=== PATIENT | female | born 1950 | race Caucasian/White ===

== ENCOUNTER 2016-11-20 13:19 | Emergency (ER) | payer MEDICARE ==
[~2016-11-20 13:19] MED LIST: ALPR0.25; ASPI-605; BUPR100T4 PO; OXCA300O
--- NOTE | 2016-11-20 13:33 | NUR ---
called patient name, not found in waiting room or overflow
--- NOTE | 2016-11-20 14:29 | NUR ---
called patient again not in waiting room
== END 2016-11-20 14:30 | disposition left against medical advice (07) ==
LOC: ER 13:20
DX: Z53.21 Procedure and treatment not carried out due to patient leaving prior to being seen by health care provider (principal)

== ENCOUNTER 2018-05-25 12:52 | Emergency (ER) | payer MEDICARE, BC ==
[~2018-05-25] VITALS: Ht 147.3 cm; Wt 42.2 kg
--- NOTE | 2018-05-25 13:29 | NUR ---
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 PT STATES TAKING ABX FOR UTI. ALSO TOOK SOMA FOR PAIN AND THINKS SHE IS HAVING AN ALLERGIVC REACTION. DENIES SOB. VSS. AWAITING MD MURPHY.
--- NOTE | 2018-05-25 13:44 | NUR ---
DR NEFF AT BEDSIDE FOR EVAL.
--- NOTE | 2018-05-25 14:04 | NUR ---
IV LINE STARTED. BLOOD DRAWN AND SENT TO LAB.
[2018-05-25 14:20] LABS: CALCIUM, SERUM 8.8 mg/dL (8.5-10.1); CARBON DIOXIDE 31 mmol/L (21-32); CHLORIDE 99 mmol/L (98-107); CREATININE 0.9 mg/dL (0.6-1.3); GLUCOSE 108 mg/dL (74-106); POTASSIUM 4.1 mmol/L (3.5-5.1); SODIUM SERUM 133 mmol/L (136-145); UREA NITROGEN, BLOOD 13 mg/dL (7-18)
[2018-05-25 14:23] LABS: INR 0.95 (0.85-1.15)
[2018-05-25 14:28] LABS: TROPONIN I < 0.017 ng/mL (0.00-0.056)
[2018-05-25 14:52] LABS: BASOPHILS % (AUTO) 0.3 % (0.0-2.0); EOSINOPHILS % (AUTO) 0.1 % (0.0-6.0); HEMATOCRIT 37 % (33-45); HEMOGLOBIN 12.5 g/dL (11.5-14.8); LYMPHOCYTES # (AUTO) 1.1 /CMM (0.8-4.8); LYMPHOCYTES % (AUTO) 9.4 % (20.0-44.0); MEAN CORPUSCULAR HGB CONC 34 g/dl (31.0-36.0); MEAN CORPUSCULAR VOLUME 97 fL (82-100); MONOCYTES # (AUTO) 1.2 /CMM (0.1-1.30); MONOCYTES % (AUTO) 10.7 % (2.0-12.0); NEUTROPHILS # (AUTO) 9.1 /CMM (1.8-8.9); NEUTROPHILS % (AUTO) 79.5 % (43.0-81.0); PLATELET COUNT (AUTO) 344 /CMM (150-450); RED BLOOD CELL COUNT(AUTO) 3.82 MIL/uL (4.0-5.2); WHITE BLOOD COUNT (AUTO) 11.5 K/uL (4.3-11.0)
--- NOTE | 2018-05-25 15:38 | NUR ---
Patient discharged to home in stable condition. Written and verbal after care instructions given. Patient verbalizes understanding of instruction.IV removed. Catheter intact and site benign. Pressure and 4x4 applied to site. No bleeding noted.
[2018-05-25 15:39] VITALS: BP 115/62
== END 2018-05-25 15:39 | disposition home or self-care (01) ==
LOC: ER 12:54
DX: R07.89 Other chest pain (principal); I10 Essential (primary) hypertension; F31.9 Bipolar disorder, unspecified; E22.2 Syndrome of inappropriate secretion of antidiuretic hormone; Z98.890 Other specified postprocedural states; Z90.89 Acquired absence of other organs; Z60.2 Problems related to living alone; Z87.440 Personal history of urinary (tract) infections
CPT/HCPCS: 36415; 71045; 80048; 84484; 85025; 85730; 93005; 99285; A4606; Z7610

== ENCOUNTER 2018-12-14 11:32 | Emergency (ER) | payer MEDICARE, BC ==
[~2018-12-14] VITALS: Ht 147.3 cm; Wt 43.1 kg
[2018-12-14 11:55] VITALS: BP 135/61
--- NOTE | 2018-12-14 12:35 | NUR ---
DR APODACA AT BEDSIDE
[2018-12-14] MEDS ORDERED: KETOROLAC TROMETHAMINE INJ 30 MG/ML VIAL ONE (12:39)
--- NOTE | 2018-12-14 12:39 | NUR ---
RECEIVED VERBAL ORDER FROM DR APODACA FOR TORADOL 30MG IM. CARRIED OUT ORDER.
[2018-12-14] MEDS ORDERED: KETOROLAC TROMETHAMINE INJ 60 MG/2 ML VIAL IM ONE (13:00)
== END 2018-12-14 13:50 | disposition home or self-care (01) ==
LOC: ER 11:35
DX: K08.89 Other specified disorders of teeth and supporting structures (principal); F31.9 Bipolar disorder, unspecified; E22.2 Syndrome of inappropriate secretion of antidiuretic hormone; Z98.890 Other specified postprocedural states; Z90.89 Acquired absence of other organs; Z60.2 Problems related to living alone; Z79.82 Long term (current) use of aspirin
CPT/HCPCS: 96372; 99283; J1885

== ENCOUNTER 2023-09-07 19:38 | Inpatient (IN) | payer MEDICARE, BC ==
[~2023-09-07] VITALS: Ht 147.3 cm; Wt 43.1 kg
[2023-09-07 20:37] LABS: BASOPHILS % (AUTO) 0.3 % (0.0-2.0); EOSINOPHILS # (AUTO) 0.1 K/uL (0.0-0.7); EOSINOPHILS % (AUTO) 1.9 % (0.0-6.0); HEMATOCRIT 36 % (33-45); HEMOGLOBIN 12.1 g/dL (11.5-14.8); LYMPHOCYTES # (AUTO) 1.5 K/uL (0.8-4.8); LYMPHOCYTES % (AUTO) 20.8 % (20.0-44.0); MEAN CORPUSCULAR HEMOGLOBIN 32 PG (26.0-33.0); MEAN CORPUSCULAR HGB CONC 34 g/dl (31.0-36.0); MEAN CORPUSCULAR VOLUME 95 fL (82-100); MONOCYTES # (AUTO) 0.8 K/uL (0.1-1.30); MONOCYTES % (AUTO) 10.9 % (2.0-12.0); NEUTROPHILS # (AUTO) 4.8 K/uL (1.8-8.9); NEUTROPHILS % (AUTO) 66.1 % (43.0-81.0); PLATELET COUNT (AUTO) 243 K/uL (150-450); RED BLOOD CELL COUNT(AUTO) 3.81 MIL/uL (4.0-5.2); RED CELL DISTRIBUTION WIDTH 13.1 % (11.5-15.0); WHITE BLOOD COUNT (AUTO) 7.3 K/uL (4.3-11.0)
[2023-09-07] MEDS ORDERED: KETOROLAC TROMETHAMINE 15 MG/ML VIAL ONE (20:50)
[2023-09-07 20:51] LABS: CALCIUM, SERUM 9.4 mg/dL (8.5-10.1); CARBON DIOXIDE 28 mmol/L (21-32); CHLORIDE 98 mmol/L (98-107); CREATININE 0.7 mg/dL (0.6-1.3); GLUCOSE 112 mg/dL (74-106); POTASSIUM 3.7 mmol/L (3.5-5.1); SODIUM SERUM 135 mmol/L (136-145); UREA NITROGEN, BLOOD 15 mg/dL (7-18)
[2023-09-07] MEDS ORDERED: ASPIRIN 325 MG TABLET ONE (20:51)
[2023-09-07] MEDS ORDERED: ASPIRIN 325 MG TABLET PO ONE (21:00)
[2023-09-07] MEDS ORDERED: KETOROLAC TROMETHAMINE 15 MG/ML VIAL IV ONE (21:00)
[2023-09-07 21:03] LABS: ALANINE AMINOTRANSFERASE 33 U/L (12-78); ALBUMIN 3.7 g/dL (3.4-5.0); ALKALINE PHOSPHATASE 89 U/L (46-116); ASPARTATE AMINOTRANSFERASE 22 U/L (15-37); BILIRUBIN,DIRECT 0.1 mg/dL (0.0-0.2); BILIRUBIN,TOTAL 0.4 mg/dL (0.2-1.0); NT-PRO BNP 369 pg/mL (0-125)
[2023-09-07] MEDS ORDERED: ACETAMINOPHEN 325 MG TABLET PO PRN (22:00)
[2023-09-07] MEDS ORDERED: hydrALAZINE HCL IV 20 MG VIAL IV PRN (22:00)
[2023-09-07] MEDS ORDERED: ALPRAZOLAM 0.25 MG TABLET PO PRN (22:00)
[2023-09-07] MEDS ORDERED: ONDANSETRON HCL/PF 4 MG/2 ML VIAL IVP PRN (22:00)
[2023-09-08 08:20] VITALS: O2SAT 100
[2023-09-08] MEDS ORDERED: ROSU5TAB PO (08:20)
[2023-09-08] MEDS ORDERED: DIAZ5TAB4 PO (08:20)
[2023-09-08] MEDS ORDERED: MULT-754 PO (08:20)
[2023-09-08] MEDS ORDERED: ASCO100T12 PO (08:20)
[2023-09-08] MEDS ORDERED: NAPR-1009 PO (08:20)
[2023-09-08] MEDS ORDERED: OXCA300T15 PO (08:20)
[2023-09-08] MEDS ORDERED: BUPR200T3 PO (08:20)
[2023-09-08] MEDS ORDERED: OXCA600T5 PO (08:20)
[2023-09-08] MEDS ORDERED: ASPI-1420 PO (08:20)
[2023-09-08] MEDS ORDERED: METO-357 PO (08:20)
[2023-09-08] MEDS ORDERED: LACT1CAP97 PO (08:20)
[2023-09-08] MEDS ORDERED: FOLI0.8T3 PO (08:20)
[2023-09-08] MEDS ORDERED: AMLO10TA4 PO (08:20)
[2023-09-08] MEDS ORDERED: ASPIRIN EC 81 MG TABLET.DR PO ONE (08:35)
[2023-09-08] MEDS ORDERED: MORPHINE SULFATE INJ 2 MG/ML DISP.SYRIN ONE (08:48)
[2023-09-08] MEDS: HEPARIN SODIUM, PORCINE 5000 UNITS/1 ML VIAL SQ SCH ×2 (08:52→22:22)
[2023-09-08] MEDS: MORPHINE SULFATE INJ 2 MG/ML DISP.SYRIN IV PRN ×3 (08:53→18:09)
[2023-09-08] MEDS ORDERED: ASPIRIN EC 81 MG TABLET.DR PO SCH (09:00)
[2023-09-08] MEDS ORDERED: buPROPion 100 MG TABLET PO SCH ×2 (09:00→11:00)
[2023-09-08] MEDS ORDERED: IV NS 0.9% 250 ML IV ONE (09:11)
[2023-09-08] MEDS ORDERED: IOHEXOL-350 100 ML VIAL IV ONE (09:11)
[2023-09-08 09:43] LABS: BASOPHILS % (AUTO) 0.5 % (0.0-2.0); EOSINOPHILS # (AUTO) 0.1 K/uL (0.0-0.7); EOSINOPHILS % (AUTO) 3.2 % (0.0-6.0); HEMATOCRIT 35 % (33-45); HEMOGLOBIN 11.9 g/dL (11.5-14.8); LYMPHOCYTES # (AUTO) 1.1 K/uL (0.8-4.8); MEAN CORPUSCULAR HEMOGLOBIN 32 PG (26.0-33.0); MEAN CORPUSCULAR HGB CONC 34 g/dl (31.0-36.0); MEAN CORPUSCULAR VOLUME 94 fL (82-100); MONOCYTES # (AUTO) 0.5 K/uL (0.1-1.30); MONOCYTES % (AUTO) 11.8 % (2.0-12.0); NEUTROPHILS # (AUTO) 2.5 K/uL (1.8-8.9); NEUTROPHILS % (AUTO) 58.5 % (43.0-81.0); PLATELET COUNT (AUTO) 236 K/uL (150-450); RED BLOOD CELL COUNT(AUTO) 3.68 MIL/uL (4.0-5.2); RED CELL DISTRIBUTION WIDTH 12.4 % (11.5-15.0); WHITE BLOOD COUNT (AUTO) 4.3 K/uL (4.3-11.0)
[2023-09-08 10:19] LABS: ALBUMIN 3.1 g/dL (3.4-5.0); BILIRUBIN,TOTAL 0.6 mg/dL (0.2-1.0); CALCIUM, SERUM 9.1 mg/dL (8.5-10.1); CREATININE 0.6 mg/dL (0.6-1.3); MAGNESIUM 1.9 mg/dL (1.8-2.4); PHOSPHORUS 3.8 mg/dL (2.5-4.9); POTASSIUM 3.8 mmol/L (3.5-5.1); TOTAL PROTEIN, SERUM 7.3 g/dL (6.4-8.2)
[2023-09-08] MEDS ORDERED: OXCARBAZEPINE 150 MG TABLET PO SCH ×3 (11:00→22:00)
[2023-09-08] MEDS: OXCARBAZEPINE 150 MG TABLET PO SCH ×3 (11:21→21:21)
[2023-09-08] MEDS: DIAZEPAM 5 MG TABLET PO SCH ×2 (11:22→17:27)
[2023-09-08] MEDS: buPROPion SR 100 MG TABLET.ER PO SCH ×2 (11:22→17:26)
[2023-09-08 16:29] VITALS: BP 106/67; TEMP 98.1; O2SAT 98
[2023-09-08] MEDS ORDERED: OXCARBAZEPINE 300 MG PO SCH (17:00)
[2023-09-08] MEDS: NAPROXEN 500 MG TABLET PO SCH (17:56)
[2023-09-08 20:00] VITALS: BP 109/64; TEMP 98.1; O2SAT 97
[2023-09-08] MEDS: ATORVASTATIN 10 MG TABLET PO SCH (21:20)
[2023-09-08] MEDS: METOPROLOL SUCCINATE 50 MG TAB.SR.24H PO SCH (21:35)
[2023-09-08] MEDS ORDERED: OXCARBAZEPINE 600 MG PO SCH (22:00)
[2023-09-09] VITALS: BP 117/70; TEMP 98; O2SAT 96
[2023-09-09] MEDS: DIAZEPAM 5 MG TABLET PO SCH ×6 (00:22→18:09)
[2023-09-09] MEDS: MORPHINE SULFATE INJ 2 MG/ML DISP.SYRIN IV PRN ×4 (00:31→22:50)
[2023-09-09 05:00] VITALS: BP 135/79; TEMP 97.9; O2SAT 97
[2023-09-09 08:26] VITALS: BP 130/78; TEMP 97.5; O2SAT 97
[2023-09-09] MEDS: FOLIC ACID 1 MG TABLET PO SCH (08:52)
[2023-09-09] MEDS: ASPIRIN EC 81 MG TABLET.DR PO SCH (08:52)
[2023-09-09] MEDS: OXCARBAZEPINE 150 MG TABLET PO SCH ×3 (08:52→21:57)
[2023-09-09] MEDS: buPROPion SR 100 MG TABLET.ER PO SCH ×2 (08:53→16:15)
[2023-09-09] MEDS: NAPROXEN 500 MG TABLET PO SCH ×2 (08:53→18:09)
[2023-09-09] MEDS: LACTOBACILLUS RHAMNOSUS GG 1 EACH CAP.SPRINK PO SCH (08:53)
[2023-09-09] MEDS: ASCORBIC ACID 500 MG TABLET PO SCH (08:53)
[2023-09-09] MEDS: AMLODIPINE BESYLATE 10 MG TABLET PO SCH (08:54)
[2023-09-09] MEDS: MULTIVITAMINS,THERAGRAN 1 UDTAB TABLET PO SCH (08:56)
[2023-09-09] MEDS: HEPARIN SODIUM, PORCINE 5000 UNITS/1 ML VIAL SQ SCH ×2 (08:56→21:56)
[2023-09-09] MEDS ORDERED: HYDR-4303 PO (09:59)
[2023-09-09 11:50] VITALS: BP 140/84; TEMP 98.8; O2SAT 98
[2023-09-09 16:11] VITALS: BP 107/63; TEMP 98.4; O2SAT 97
[2023-09-09 20:00] VITALS: BP 109/60; TEMP 98.6; O2SAT 96
[2023-09-09] MEDS: ATORVASTATIN 10 MG TABLET PO SCH (21:57)
[2023-09-09] MEDS: METOPROLOL SUCCINATE 50 MG TAB.SR.24H PO SCH (21:58)
[2023-09-10] VITALS: BP 114/71; TEMP 97.3; O2SAT 99
[2023-09-10] MEDS: DIAZEPAM 5 MG TABLET PO SCH ×3 (00:55→11:46)
[2023-09-10 04:00] VITALS: BP 97/57; TEMP 97.1; O2SAT 100
[2023-09-10 07:30] VITALS: BP 143/95; TEMP 97.7; O2SAT 98
[2023-09-10 07:40] LABS: BASOPHILS % (AUTO) 0.4 % (0.0-2.0); EOSINOPHILS # (AUTO) 0.1 K/uL (0.0-0.7); EOSINOPHILS % (AUTO) 3.2 % (0.0-6.0); HEMATOCRIT 33 % (33-45); HEMOGLOBIN 11.3 g/dL (11.5-14.8); LYMPHOCYTES # (AUTO) 1.4 K/uL (0.8-4.8); LYMPHOCYTES % (AUTO) 34.4 % (20.0-44.0); MEAN CORPUSCULAR HEMOGLOBIN 32 PG (26.0-33.0); MEAN CORPUSCULAR HGB CONC 34 g/dl (31.0-36.0); MEAN CORPUSCULAR VOLUME 94 fL (82-100); MONOCYTES # (AUTO) 0.5 K/uL (0.1-1.30); NEUTROPHILS # (AUTO) 2.1 K/uL (1.8-8.9); PLATELET COUNT (AUTO) 235 K/uL (150-450); RED BLOOD CELL COUNT(AUTO) 3.51 MIL/uL (4.0-5.2); RED CELL DISTRIBUTION WIDTH 12.4 % (11.5-15.0); WHITE BLOOD COUNT (AUTO) 4.1 K/uL (4.3-11.0)
[2023-09-10 08:25] LABS: ALBUMIN 2.8 g/dL (3.4-5.0); BILIRUBIN,TOTAL 0.1 mg/dL (0.2-1.0); CALCIUM, SERUM 8.9 mg/dL (8.5-10.1); CREATININE 0.6 mg/dL (0.6-1.3); MAGNESIUM 2.3 mg/dL (1.8-2.4); PHOSPHORUS 5.7 mg/dL (2.5-4.9); POTASSIUM 4.2 mmol/L (3.5-5.1); TOTAL PROTEIN, SERUM 6.5 g/dL (6.4-8.2)
[2023-09-10] MEDS: MORPHINE SULFATE INJ 2 MG/ML DISP.SYRIN IV PRN ×2 (08:29→15:24)
[2023-09-10 08:32] VITALS: BP 143/95
[2023-09-10] MEDS: MULTIVITAMINS,THERAGRAN 1 UDTAB TABLET PO SCH (08:32)
[2023-09-10] MEDS: ASPIRIN EC 81 MG TABLET.DR PO SCH (08:32)
[2023-09-10] MEDS: AMLODIPINE BESYLATE 10 MG TABLET PO SCH (08:32)
[2023-09-10] MEDS: OXCARBAZEPINE 150 MG TABLET PO SCH (08:33)
[2023-09-10] MEDS: LACTOBACILLUS RHAMNOSUS GG 1 EACH CAP.SPRINK PO SCH (08:33)
[2023-09-10] MEDS: FOLIC ACID 1 MG TABLET PO SCH (08:33)
[2023-09-10] MEDS: ASCORBIC ACID 500 MG TABLET PO SCH (08:33)
[2023-09-10] MEDS: buPROPion SR 100 MG TABLET.ER PO SCH (08:33)
[2023-09-10] MEDS: NAPROXEN 500 MG TABLET PO SCH (08:33)
[2023-09-10] MEDS: HEPARIN SODIUM, PORCINE 5000 UNITS/1 ML VIAL SQ SCH (08:35)
== END 2023-09-10 17:00 | disposition home health service (06) | DRG 543 ==
LOC: EDUNIT# 19:38 → ER 19:51 → TRANSITION 09-08 05:33 → TELE 09-08 09:59
PROVIDERS: ADMIT Internal Medicine; ATTEND Internal Medicine
DX: M48.54XA Collapsed vertebra, not elsewhere classified, thoracic region, initial encounter for fracture (principal); E22.2 Syndrome of inappropriate secretion of antidiuretic hormone; F31.9 Bipolar disorder, unspecified; F41.9 Anxiety disorder, unspecified; I10 Essential (primary) hypertension; E78.5 Hyperlipidemia, unspecified; Z86.39 Personal history of other endocrine, nutritional and metabolic disease; R79.89 Other specified abnormal findings of blood chemistry; Y92.9 Unspecified place or not applicable; T42.1X5A Adverse effect of iminostilbenes, initial encounter; M75.40 Impingement syndrome of unspecified shoulder
CPT/HCPCS: 36415; 71045-TC; 72128-TC; 80048-TC; 80053-TC; 80076-TC; 83735-TC; 83880; 84100-TC; 84295-TC; 84484-TC; 85025-TC; 93307-TC; G0378; J1644; J1885; J2270; J7050; Q9967

== ENCOUNTER 2025-02-15 20:51 | Emergency (ER) | payer MEDICARE, BC ==
[~2025-02-15] VITALS: Ht 147.3 cm; Wt 42.2 kg
[~2025-02-15 20:51] MED LIST changes: -ALPR0.25; +AMLO10TA4 PO; +ASCO100T12 PO; +ASPI-1420 PO; -ASPI-605; -BUPR100T4 PO; +BUPR200T3 PO; +DIAZ5TAB4 PO; +FOLI0.8T3 PO; +HYDR-4303 PO; +LACT1CAP97 PO; +METO-357 PO; +MULT-754 PO; +NAPR-1009 PO; -OXCA300O; +OXCA300T15 PO; +OXCA600T5 PO; +ROSU5TAB PO
[2025-02-15] MEDS: IV NS 0.9% 1,000 ML BAG IV ONE ×2 (21:29→22:29)
[2025-02-15] MEDS ORDERED: ONDANSETRON HCL/PF 4 MG/2 ML VIAL ONE ×2 (21:30→22:29)
[2025-02-15] MEDS: ONDANSETRON HCL/PF 4 MG/2 ML VIAL IVP ONE (21:31)
[2025-02-15 21:57] LABS: BASOPHILS % (AUTO) 0.2 % (0.0-2.0); EOSINOPHILS % (AUTO) 0.2 % (0.0-6.0); HEMATOCRIT 41 % (33-45); HEMOGLOBIN 14.4 g/dL (11.5-14.8); LYMPHOCYTES # (AUTO) 0.1 K/uL (0.8-4.8); LYMPHOCYTES % (AUTO) 1.7 % (20.0-44.0); MEAN CORPUSCULAR HEMOGLOBIN 33 PG (26.0-33.0); MEAN CORPUSCULAR HGB CONC 35 g/dl (31.0-36.0); MEAN CORPUSCULAR VOLUME 94 fL (82-100); MONOCYTES # (AUTO) 0.6 K/uL (0.1-1.30); NEUTROPHILS # (AUTO) 7.3 K/uL (1.8-8.9); NEUTROPHILS % (AUTO) 90.9 % (43.0-81.0); PLATELET COUNT (AUTO) 294 K/uL (150-450); RED CELL DISTRIBUTION WIDTH 12.6 % (11.5-15.0)
[2025-02-15 22:09] LABS: CALCIUM, SERUM 9.2 mg/dL (8.5-10.1); CREATININE 0.8 mg/dL (0.6-1.3); POTASSIUM 4.1 mmol/L (3.5-5.1)
[2025-02-15 22:15] LABS: ALBUMIN 3.8 g/dL (3.4-5.0); BILIRUBIN,DIRECT 0.1 mg/dL (0.0-0.2); BILIRUBIN,TOTAL 0.4 mg/dL (0.2-1.0); TOTAL PROTEIN, SERUM 7.7 g/dL (6.4-8.2)
[2025-02-15] MEDS ORDERED: FAMO-131 PO (22:22)
[2025-02-15] MEDS ORDERED: ONDA8TAB13 PO (22:22)
[2025-02-15] MEDS: KETOROLAC TROMETHAMINE 15 MG/ML VIAL IV ONE (22:29)
[2025-02-15] MEDS ORDERED: KETOROLAC TROMETHAMINE 15 MG/ML VIAL ONE (22:29)
[2025-02-15] MEDS: ONDANSETRON HCL/PF 4 MG/2 ML VIAL IV ONE (22:29)
[2025-02-15 22:43] VITALS: BP 122/70; TEMP 98.6; O2SAT 98
== END 2025-02-15 23:37 | disposition home or self-care (01) ==
LOC: ER 20:54
DX: K52.89 Other specified noninfective gastroenteritis and colitis (principal); E86.0 Dehydration; R11.2 Nausea with vomiting, unspecified; I10 Essential (primary) hypertension; Z79.82 Long term (current) use of aspirin; Z79.899 Other long term (current) drug therapy; Z86.59 Personal history of other mental and behavioral disorders
CPT/HCPCS: 99285; 74176; 96374; 96361; 96375; 96376; 85025; 80048; 83690; 80076; 36415; J1885; J2405 ×2; J7030 ×2